=== PATIENT | male | born 1980 | race Caucasian/White ===

== ENCOUNTER → 2020-07-14 | Outpatient (CLI) | payer OTHER | END | disposition home or self-care (01) | LOC: LABPAT 08:22 | PROVIDERS: ATTEND Surgery | DX: U07.1 COVID-19 (principal) ==

== ENCOUNTER 2020-07-22 08:01 | Day surgery (SDC) | payer OTHER ==
[2020-07-20 14:57] VITALS: BMI 36.6
[~2020-07-22 08:01] MED LIST: LACTATED RINGERS 1,000 ML IV SCH
[2020-07-22 08:22] VITALS: RESP 16; TEMP 97.3
[2020-07-22] MEDS ORDERED: PROPOFOL 10 MG/ML 20 ML VIAL IV ONE (09:05)
--- NOTE | 2020-07-22 09:30 | P.PCN ---
Date of Procedure: 07/22/20 Preoperative Diagnosis: Rectal bleeding Postoperative Diagnosis: Internal hemorrhoids Procedure(s) Performed: Colonoscopy Surgeon: Dana Rogers Pathology: none sent Condition: stable Disposition: same day Indications for Procedure: 39-year-old male presents for a colonoscopy secondary to rectal bleeding. Risks, benefits and alternatives were provided to the patient. Consent was provided prior to the procedure. Operative Findings: Normal colon Internal hemorrhoids Description of Procedure: The patient was brought to the endoscopy suite and placed in left lateral decubitus position and adequate sedation was achieved using conscious sedation. A digital rectal exam was performed and mild internal hemorrhoids were palpated. An endoscope was then placed in the rectum and advanced to the cecum as identified by landmarks including the appendiceal orifice and the ileocecal valve. The prep was good. The colonoscope was then slowly withdrawn, examining for any mucosal under malleus. The cecum, ascending, transverse, descending and sigmoid colon were visualized adequately. There were no large aplastic lesions throughout the colon. There were no polyps noted throughout the colon. There was no active hemorrhage throughout the colon. There was no evidence of diverticulosis. Flexion was performed in the rectum and mild internal hemorrhoids were visible. Excess air was removed, the colonoscope withdrawn and the procedure terminated. The patient was then transferred to the recovery unit in stable condition. Repeat colonoscopy should be performed at age 51 for screening purposes, unless otherwise symptomatic.
[2020-07-22 09:43] VITALS: BP 135/81; PULSE 84
== END 2020-07-22 10:02 | disposition home or self-care (01) ==
LOC: ORWHC2ENDO 08:01
PROVIDERS: ATTEND Surgery
DX: K64.8 Other hemorrhoids (principal); K21.9 Gastro-esophageal reflux disease without esophagitis; Z98.890 Other specified postprocedural states; Z79.899 Other long term (current) drug therapy; Z82.49 Family history of ischemic heart disease and other diseases of the circulatory system; Z83.3 Family history of diabetes mellitus; Z80.9 Family history of malignant neoplasm, unspecified
CPT/HCPCS: 45378; J2704

== ENCOUNTER → 2024-11-17 | Outpatient (CLI) | payer OTHER ==
--- NOTE | 2024-11-17 15:42 | NM ---
EXAMINATION TYPE: NM stress cardiolite complete DATE OF EXAM: 11/17/2024 COMPARISON: NONE CLINICAL INDICATION: Male, 44 years old with history of R07.9 CHEST PAIN, UNSPECIFIED, TECHNIQUE: After the intravenous administration of 9.77 mCi Tc 99m Sestamibi - Cardiolite resting SP ECT images acquired 45 minutes post injection. At peak stress 26.2 mCi Tc 99m Sestamibi - Stress images obtained 10 minutes post injection The patient was stressed on the treadmill reaching greater than 85% predicted maximum heart rate. FINDINGS: No fixed defects are evident Polar map suggests some septal base diminished radiotracer on stress with normal appearance at rest. Correlate for EKG changes. Wall motion is normal Ejection fraction is calculated to be 65 %. IMPRESSION: 1. Polar maps suggest a stress-induced ischemic change along the septal wall predominantly near the b ase. Correlate for any EKG changes. 2. Examination otherwise appears within normal limits [facility], , 11/17/2024 3:40 PM
--- NOTE | 2024-11-17 17:25 | CA ---
Exercise Stress Test Report Name: Dewey Morales Exam Date: 11/17/2024 09:46 Exam Location: [facility] Stress Ht (in): 72 Wt (lb): 295 BSA: 2.51 Ordering Phys: Shelia Mead DO Referring Phys: SHELIA MEAD Technologist: Anthony Mauro Age: 44 Gender: M : 1980 Procedure CPT: Indications: R07.9 CHEST PAIN, UNSPECIFIED ICD-10 Codes: Patient History: CP, FAMILY HX, HTN. Medications: LOSARTAN, PRILOSEC. Meds past 24 hrs: Pretest Chest Pain: STRESS TEST Brad Protocol Exercise Duration (min:sec): 07:[address] Depressions (mm): Angina Score: Sanchez Score: Resting HR (bpm): 108 Peak HR (bpm): 165 Resting BP (mmHg): 148 / 91 Peak BP (mmHg): 181 / 81 MPHR: 177 Target HR: 150 % MPHR: 93 METS: 9.8 Total Dose: Peak Dose: Atropine: Double Product: 25353 BP Response: Stress Termination: TARGET HR REACHED/MAX EXERTION Stress Symptoms: DIFFICULTY IN BREATHING Stress Summary: ECG ANALYSIS Resting ECG: Normal sinus rhythm normal axis normal intervals Stress ECG: Patient exercised on Brad protocol for 7 and half minutes achieving 85% of predicted maximal heart rate without chest pain or diagnostic ST segment depression CONCLUSIONS Average exercise tolerance Negative stress test by EKG criteria Dr. Juan Daniel Vaughan MD (Electronically Signed) Final Date: 17 November 2024 17:24
== END | disposition home or self-care (01) ==
LOC: RADNMMAIN 08:06
PROVIDERS: ATTEND Family Medicine
DX: R07.9 Chest pain, unspecified (principal); Z82.49 Family history of ischemic heart disease and other diseases of the circulatory system
CPT/HCPCS: 93017; 78452; A9500

== ENCOUNTER → 2025-04-28 | Outpatient (CLI) | payer OTHER ==
[2025-04-28 10:44] LABS: HCT 49.7 % (39.6-50.0); HGB 16.0 g/dL (13.0-17.0); MCH 26.8 pg (27.0-32.0); MCHC 32.2 g/dL (32.0-37.0); MCV 83.4 FL (80.0-97.0); NRBC Per 100 WBC 0 X 10*3/uL (0.00-0.01); Platelet Count 300 X 10*3/uL (140-440); RBC 5.96 X 10*6/uL (4.40-5.60); RDW 12.6 % (11.5-14.5); WBC 10.55 X 10*3/uL (4.50-10.00)
[2025-04-28 10:48] LABS: Anion Gap 11.90 mmol/L (4.00-12.00); Blood Urea Nitrogen 15.0 mg/dL (9.0-27.0); Carbon Dioxide 24.1 mmol/L (21.6-31.8); Chloride 104 mmol/L (96-109); Potassium 4.0 mmol/L (3.5-5.5); Sodium 140 mmol/L (135-145)
== END | disposition home or self-care (01) ==
LOC: LABPAT 07:51
PROVIDERS: ATTEND Internal Medicine Cardiovascular Disease
DX: Z01.812 Encounter for preprocedural laboratory examination (principal); R07.9 Chest pain, unspecified; R94.39 Abnormal result of other cardiovascular function study
CPT/HCPCS: 36415; 80051; 82565; 84520; 85027